=== PATIENT | female | born 1965 | race Two or more races ===

== ENCOUNTER 2018-12-01 20:14 | Inpatient (IN) | payer MEDICAID ==
[~2018-12-01] VITALS: Ht 160 cm; Wt 74.0 kg
--- NOTE | 2018-12-01 20:35 | NUR ---
Patient is AAOx4, speaking in complete sentences, speech is clear. Able to follow /comprehend directions. Gait is stable. No cardiovascular distress noted. Rate/rhythm regular. No CP. No respiratory distress noted. Respirations even , unlabored, symmetrical chest rise. No adventitious sounds noted. Chief complaint: Patient comes in from home, c/o vomiting, epigastric pain and headache for 3days. Patient took exedrin but with no relief. Bowel sounds present and normoactive in all four quadrants. denies blood on emesis, denies blood in stools Denies Fever/Chills ,+hot flashes, denies taking hormones. No recent travel. +of familial hx of heart attack (father)/NKDA. - ETOH / -recreational drug use/ +7-10cigarettes per day. LBM- yesterday. Continent of bowel and bladder function. hx of HTN DM CAD, denies hx of chest pain or sensation of tightness, SOB, no report of copious diaphoresis, denies shooting pains into left arm or jaw SAFETY Patient in bed, bed in lowest position. Siderails up x 2. Call light within reach. Will continue to monitor accordingly MD at bedside for hx and physical
[2018-12-01] MEDS ORDERED: IV NORMAL SALINE 1000 ML BAG IV ONE (20:45)
[2018-12-01] MEDS ORDERED: MORPHINE SULFATE 2 MG/1 ML DISP.SYRIN IV ONE (20:45)
[2018-12-01] MEDS ORDERED: ONDANSETRON 4 MG/2 ML VIAL IV ONE (20:45)
[2018-12-01 21:06] LABS: BASOPHILS # (AUTO) 0.1 K/uL (0.0-8.0); BASOPHILS % (AUTO) 0.6 % (0.0-2.0); EOSINOPHILS # (AUTO) 0.1 K/uL (0.0-0.7); EOSINOPHILS % (AUTO) 0.8 % (0.0-7.0); HEMATOCRIT 44.8 % (31.2-41.9); HEMOGLOBIN 15.2 g/dL (10.9-14.3); LYMPHOCYTES # (AUTO) 2.2 K/uL (20.0-40.0); LYMPHOCYTES % (AUTO) 21.3 % (20.5-51.5); MEAN CORPUSCULAR HEMOGLOBIN 28.9 uug (24.7-32.8); MEAN CORPUSCULAR HGB CONC 34 g/dL (32.3-35.6); MEAN CORPUSCULAR VOLUME 85.1 fL (75.5-95.3); MONOCYTES # (AUTO) 0.6 K/uL (2.0-10.0); MONOCYTES % (AUTO) 5.7 % (0.0-11.0); NEUTROPHILS # (AUTO) 7.4 K/uL (1.8-8.9); NEUTROPHILS % (AUTO) 71.6 % (38.5-71.5); PLATELET COUNT (AUTO) 255 K/uL (179-408); RED BLOOD CELL COUNT(AUTO) 5.27 MIL/uL (3.63-4.92); WHITE BLOOD COUNT (AUTO) 10.3 K/uL (3.8-11.8)
[2018-12-01] MEDS ORDERED: ASPIRIN EC 81 MG TABLET.DR PO STA (21:07)
[2018-12-01] MEDS ORDERED: MORPHINE SULFATE 4 MG/1 ML DISP.SYRIN ONE (21:07)
[2018-12-01] MEDS ORDERED: ONDANSETRON 4 MG/2 ML VIAL ONE (21:08)
[2018-12-01] MEDS ORDERED: FAMOTIDINE. 20 MG/2 ML VIAL IV ONE ×2 (21:15→22:08)
--- NOTE | 2018-12-01 21:21 | NUR ---
IVF STARTED ON LEFT AC. ABLE TO TOLERATE. ADMINISTERED MEDS ORDERED. WILL CONTINUE TO MONITOR. KEPT WARM DRY AND COMFORTABLE
[2018-12-01 21:27] LABS: CREATININE 0.9 mg/dL (0.6-1.3); POTASSIUM 3.6 mmol/L (3.5-5.1)
[2018-12-01 21:32] LABS: BILIRUBIN,DIRECT 0.1 mg/dL (0.0-0.2); BILIRUBIN,TOTAL 0.7 mg/dL (0.2-1.0); TOTAL PROTEIN, SERUM 7.9 g/dL (6.4-8.2)
[2018-12-01] MEDS ORDERED: ASPIRIN EC 81 MG TABLET.DR PO ONE (22:08)
--- NOTE | 2018-12-01 22:13 | NUR ---
[facility] CARDIOLOGY PAGED, DR. HAMILTON TALKING WITH DR. SAMSON AT THIS TIME.
[2018-12-01] MEDS ORDERED: ONDANSETRON 4 MG/2 ML VIAL IV PRN (22:15)
[2018-12-01] MEDS ORDERED: DOCUSATE SODIUM 100 MG CAPSULE PO PRN (22:15)
[2018-12-01] MEDS ORDERED: MAG HYDROX/AL HYDROX/SIMETH 30 ML LIQUID UDC PO PRN (22:15)
[2018-12-01 22:30] VITALS: BP 146/80
--- NOTE | 2018-12-01 22:30 | NUR ---
PT HANDOFF AND SBAR TO NIR PENALOZA FOR TELE ADMISSION UNDER DR. BARR, PT TRANSPORTED VIA GURNEY ACCOMPANIED BY FOOD SERVICE TRAY ATTENDANT. NAD. KEPT WARM SAFE AND COMFORTABLE
--- NOTE | 2018-12-01 22:30 | NUR ---
Admitted a 53 year old female with Dx of Chest pain. Patient AAOx4. In no acute distress. Denies any SOB. Complained of left sided chest pain that radiates on her back. Will give Morphine 2mg IV for CP per order. Denies any N/V. NSR on tele at 70/min. Iv site on left AC intact and patent. Routine admission care done. Plan of care initiated. Safety measure initiated and call brasher within reach. Continue to monitor.
[2018-12-01] MEDS: MORPHINE SULFATE 2 MG/1 ML DISP.SYRIN IV PRN (22:56)
--- NOTE | 2018-12-01 23:22 | NUR ---
Clarified diet order with Manuel Roa. Patient will be on clear liquid diet. NPO discontinued per Manuel Roa.
[2018-12-01 23:54] LABS: *BILIRUBIN,URIN NEGATIVE (NEGATIVE); *BLOOD, URINE NEGATIVE (NEGATIVE); *CLARITY,URINE CLEAR (CLEAR); *COLOR,URINE YELLOW (YELLOW); *KETONES,URINE NEGATIVE (NEGATIVE); *UROBILINOGEN,URINE 0.2 E.U./dl (NORMAL); LEUKOCYTE ESTERASE ,URINE NEGATIVE (NEGATIVE); NITRITE, URINE NEGATIVE (NEGATIVE); UGLUCOSE NEGATIVE (NEGATIVE)
[2018-12-02 00:01] LABS: *URINE HCG, QUAL NEGATIVE (NEGATIVE)
--- NOTE | 2018-12-02 00:05 | NUR ---
Obtained urine sample and sent to lab.
[2018-12-02] MEDS: MORPHINE SULFATE 2 MG/1 ML DISP.SYRIN IV PRN (00:43)
[2018-12-02 00:47] VITALS: BP 135/87
[2018-12-02 05:20] VITALS: BP 109/57
[2018-12-02] MEDS: NITROGLYCERIN 0.4 MG/TAB BOTTLE SL PRN ×3 (06:06→06:21)
[2018-12-02 06:21] LABS: BASOPHILS % (AUTO) 0.4 % (0.0-2.0); EOSINOPHILS # (AUTO) 0.3 K/uL (0.0-0.7); HEMATOCRIT 38.8 % (31.2-41.9); HEMOGLOBIN 13.2 g/dL (10.9-14.3); LYMPHOCYTES # (AUTO) 4.3 K/uL (20.0-40.0); LYMPHOCYTES % (AUTO) 40.1 % (20.5-51.5); MEAN CORPUSCULAR HGB CONC 34 g/dL (32.3-35.6); MEAN CORPUSCULAR VOLUME 85.4 fL (75.5-95.3); MONOCYTES # (AUTO) 0.7 K/uL (2.0-10.0); MONOCYTES % (AUTO) 6.8 % (0.0-11.0); NEUTROPHILS # (AUTO) 5.4 K/uL (1.8-8.9); NEUTROPHILS % (AUTO) 49.7 % (38.5-71.5); PLATELET COUNT (AUTO) 214 K/uL (179-408); RED BLOOD CELL COUNT(AUTO) 4.55 MIL/uL (3.63-4.92); WHITE BLOOD COUNT (AUTO) 10.8 K/uL (3.8-11.8)
[2018-12-02 06:30] LABS: BILIRUBIN,TOTAL 0.8 mg/dL (0.2-1.0); CREATININE 0.9 mg/dL (0.6-1.3); MAGNESIUM 1.8 mg/dL (1.8-2.4); PHOSPHOROUS 4.1 mg/dL (2.5-4.9); POTASSIUM 3.6 mmol/L (3.5-5.1); TOTAL PROTEIN, SERUM 6.1 g/dL (6.4-8.2)
--- NOTE | 2018-12-02 06:36 | NUR ---
Patient slept intermittently. Patient complained of chest pain radiating to her back, PRN Nitro 0.4mg given x 3 doses, patient relieved after the 3rd dose. VS WNL. NSR with episode of sinus naomi at Tele at 57/min. IV site on R AC intact and patent. All needs attended. Will endorse accordingly
[2018-12-02 06:38] LABS: THYROID STIMULATING HORMONE 2.977 mIU/mL (0.358-3.740)
--- NOTE | 2018-12-02 07:24 | NUR ---
Patient received in bed, sleeping but arousable. Awake, alert and oriented x 4. Denies any chest pain or nausea but verbalized periodic episodes through the night. verbalized her goal of comfort/relief from these symptoms. last BM 2 days ago, will monitor. On Sinus Rhythm on tele, with some bradycardia due to recent administration of Nitrostat. Will continue TELE monitoring.
[2018-12-02] MEDS: NICOTINE 14 MG/24HR PATCH TD SCH (08:45)
[2018-12-02] MEDS: ASPIRIN 81 MG TAB.CHEW PO SCH (08:45)
[2018-12-02] MEDS: ACETAMINOPHEN 325 MG TABLET PO PRN ×2 (10:18→15:23)
[2018-12-02] MEDS: PANTOPRAZOLE SODIUM 40 MG TABLET.DR PO SCH (10:18)
[2018-12-02 11:21] VITALS: BP 105/65
[2018-12-02 15:16] VITALS: BP 108/51
--- NOTE | 2018-12-02 19:15 | NUR ---
Patient calm and comfortable with no signs of distress; tolerating cardiac diet with no signs of nausea or vomiting. Call light within reach.
--- NOTE | 2018-12-02 19:30 | NUR ---
Received patient in bed AAOx4. Son at bedside. No SOB noted, denies pain at this time. IV site on L AC intact and patent. Safety measures observed. Call light within reach
[2018-12-02] MEDS ORDERED: HYDROCODONE/APAP 5-325MG TABLET PO PRN (20:45)
[2018-12-02 20:48] VITALS: BP 129/81
[2018-12-02] MEDS ORDERED: SIMVASTATIN 20 MG TABLET PO SCH (21:00)
[2018-12-03 05:10] VITALS: BP 122/63
[2018-12-03] MEDS: PANTOPRAZOLE SODIUM 40 MG TABLET.DR PO SCH (06:27)
--- NOTE | 2018-12-03 06:37 | NUR ---
Patient slept intermittently. Denies any pain at this time. No SOB noted. All needs attended. Will endorse accordingly.
[2018-12-03 06:47] LABS: BASOPHILS % (AUTO) 0.4 % (0.0-2.0); EOSINOPHILS # (AUTO) 0.3 K/uL (0.0-0.7); EOSINOPHILS % (AUTO) 3.7 % (0.0-7.0); HEMATOCRIT 39.2 % (31.2-41.9); HEMOGLOBIN 13.1 g/dL (10.9-14.3); LYMPHOCYTES # (AUTO) 3.1 K/uL (20.0-40.0); LYMPHOCYTES % (AUTO) 38.3 % (20.5-51.5); MEAN CORPUSCULAR HEMOGLOBIN 29.1 uug (24.7-32.8); MEAN CORPUSCULAR HGB CONC 34 g/dL (32.3-35.6); MEAN CORPUSCULAR VOLUME 86.8 fL (75.5-95.3); MONOCYTES # (AUTO) 0.6 K/uL (2.0-10.0); NEUTROPHILS % (AUTO) 50.6 % (38.5-71.5); PLATELET COUNT (AUTO) 208 K/uL (179-408); RED BLOOD CELL COUNT(AUTO) 4.52 MIL/uL (3.63-4.92)
[2018-12-03 06:56] LABS: CREATININE 0.9 mg/dL (0.6-1.3); MAGNESIUM 1.9 mg/dL (1.8-2.4); PHOSPHOROUS 4.4 mg/dL (2.5-4.9); POTASSIUM 3.8 mmol/L (3.5-5.1)
--- NOTE | 2018-12-03 07:10 | NUR ---
Patient in bed, awake and verbally responsive. No signs of Respiratory distress noted. No SOB. No complain of Pain or Discomfort noted. No complain of Nausea/ vomiting. denies cheat pain. All needs attended and met. Kept the call light within easy reach. Will continue to monitor.
[2018-12-03] MEDS: NICOTINE 14 MG/24HR PATCH TD SCH (08:23)
[2018-12-03] MEDS: ASPIRIN 81 MG TAB.CHEW PO SCH (08:23)
[2018-12-03 11:11] VITALS: BP 110/66
--- NOTE | 2018-12-03 12:00 | NUR ---
Patient with New Order to Discharge today, Patient made aware, she said she will be tack picker by Son at 1800 today.
--- NOTE | 2018-12-03 15:10 | NUR ---
Patient sitting in bed with Son at bedside. Patient ia awake and verbally respiratory distress Addendum: 12/03/18 at 1518 by RUBINA JOSEPH RN Patient sitting in bed with Son at bedside. Patient is awake and verbally respiratory distress, No complain of Pain or Discomfort. Discharge Instructions explained to patient and verbalized understanding. IV access and wrist band was removed. All belongings was sent with patient. Patient is ambulatory and assisted out of the building with family in stable condition.
== END 2018-12-03 15:37 | disposition home or self-care (01) | DRG 249 ==
LOC: ER 20:14 → TELE3 22:07 → MEDSURG3 12-02 17:16
PROVIDERS: ADMIT Registered Nurse; ATTEND Registered Nurse
DX: A08.4 Viral intestinal infection, unspecified (principal); E66.9 Obesity, unspecified; E86.0 Dehydration; F17.210 Nicotine dependence, cigarettes, uncomplicated; R07.89 Other chest pain; R11.2 Nausea with vomiting, unspecified; Z68.28 Body mass index [BMI] 28.0-28.9, adult; R10.13 Epigastric pain; K27.9 Peptic ulcer, site unspecified, unspecified as acute or chronic, without hemorrhage or perforation; Z76.5 Malingerer [conscious simulation]
CPT/HCPCS: 36415; 70030-TC; 71045; 83605; 83690; 83735; 84100; 84443; 84703; 85025; 93005; 93307; A4663; G0378; J2270; J2405; J3490; J7030

== ENCOUNTER 2023-05-01 14:59 | Emergency (ER) | payer MEDICAID, OTHER ==
[~2023-05-01] VITALS: Ht 160 cm; Wt 59.0 kg
[2023-05-01 17:01] LABS: BASOPHILS % (AUTO) 0.3 % (0.0-2.0); EOSINOPHILS # (AUTO) 0.1 K/uL (0.0-0.7); EOSINOPHILS % (AUTO) 0.7 % (0.0-7.0); HEMATOCRIT 44.5 % (31.2-41.9); HEMOGLOBIN 14.6 g/dL (10.9-14.3); LYMPHOCYTES # (AUTO) 1.4 K/uL (0.8-4.8); LYMPHOCYTES % (AUTO) 17.9 % (20.5-51.5); MEAN CORPUSCULAR HEMOGLOBIN 30.4 uug (24.7-32.8); MEAN CORPUSCULAR HGB CONC 33 g/dL (32.3-35.6); MEAN CORPUSCULAR VOLUME 92.6 fL (75.5-95.3); MONOCYTES # (AUTO) 0.7 K/uL (0.1-1.30); NEUTROPHILS # (AUTO) 5.7 K/uL (1.8-8.9); NEUTROPHILS % (AUTO) 72.1 % (38.5-71.5); PLATELET COUNT (AUTO) 232 K/uL (179-408); RED CELL DISTRIBUTION WIDTH 12.4 % (12.3-17.7)
[2023-05-01 17:06] LABS: DIFFERENTIAL COMMENT 1
[2023-05-01 17:15] LABS: CALCIUM 9.4 mg/dL (8.5-10.1); CARBON DIOXIDE 27 mmol/L (21-32); CHLORIDE 99 mmol/L (98-107); CREATININE 0.7 mg/dL (0.6-1.3); GLUCOSE 150 mg/dL (74-106); POTASSIUM 4.6 mmol/L (3.5-5.1); SODIUM SERUM 136 mmol/L (136-145); UREA NITROGEN, BLOOD 13 mg/dL (7-18)
[2023-05-01 17:28] LABS: NT-PRO BNP 49 pg/mL (0-125)
[2023-05-01] MEDS ORDERED: AMLODIPINE 5 MG TABLET ONE (17:43)
[2023-05-01] MEDS ORDERED: CLONIDINE HCL 0.1 MG TABLET ONE (17:43)
[2023-05-01] MEDS ORDERED: CLONIDINE HCL 0.1 MG TABLET PO ONE (17:45)
[2023-05-01] MEDS ORDERED: AMLODIPINE 5 MG TABLET PO ONE (17:45)
[2023-05-01] MEDS ORDERED: AMLO5TAB4 PO (18:27)
[2023-05-01 19:50] VITALS: BP 161/89; O2SAT 99
== END 2023-05-01 19:36 | disposition home or self-care (01) ==
LOC: ER 14:59
DX: R20.2 Paresthesia of skin (principal); I10 Essential (primary) hypertension; R07.89 Other chest pain; I25.10 Atherosclerotic heart disease of native coronary artery without angina pectoris; F17.210 Nicotine dependence, cigarettes, uncomplicated; Z71.6 Tobacco abuse counseling; Z79.899 Other long term (current) drug therapy
CPT/HCPCS: 36415; 71045; 84443; 84484; 85025; 93005; A4606; A4663